=== PATIENT | male | born 1940 | race Caucasian/White ===

== ENCOUNTER 2019-08-03 09:03 | Observation (INO) | payer MEDICARE, OTHER, SELFPAY ==
[2019-08-03 09:27] LABS: #Basophils 0.1 thou/uL (0.0-0.2); #Eosinphils 0.1 thou/uL (0.0-0.7); #Lymphocytes 1.4 thou/uL (1.20-3.40); #Monocytes 0.4 thou/uL (0.11-0.59); #Neutrophils 4.2 thou/uL (1.40-6.50); %Basophils 1.1 % (0.0-1.0); %Lymphocytes 22.2 % (21.0-51.0); %Monocytes 6.3 % (0.0-10.0); %Neutrophils 68.5 % (42.0-75.0); Hemoglobin 14.6 g/dL (14.0-18.0); Mean Corpuscular HGB CONC 32.2 g/dL (32.0-36.0); Mean Corpuscular Hemoglobin 30.2 pg (27.0-31.0); Mean Corpuscular Volume 93.9 fL (78.0-98.0); Mean Platelet Volume 8.2 fL (7.4-10.4); Platelet Count 191 thou/uL (130-400); Red Blood Cell (RBC) Count 4.84 mill/uL (4.70-6.10); White Blood Cell (WBC) Count 6.2 thou/uL (4.8-10.8)
[2019-08-03] MEDS ORDERED: Nitroglycerin 2% Ointment 1 INCH/1 GM Packet ONE (09:32)
[2019-08-03] MEDS ORDERED: Aspirin Chewable 81 MG TAB ONE (09:32)
[2019-08-03 09:51] LABS: ALT (SGPT) 13 U/L (8-55); AST (SGOT) 16 U/L (5-34); Albumin 4.2 g/dL (3.4-4.8); Alkaline Phosphatase 96 U/L (40-110); Anion Gap 11 mmol/L (10-20); BUN (Urea Nitrogen) 20 mg/dL (8.4-25.7); Bilirubin, Total 0.6 mg/dL (0.2-1.2); Calc. Creatinine Clearance 0 mL/min (70-130); Calcium 9.3 mg/dL (7.8-10.44); Carbon Dioxide 25 mmol/L (23-31); Chloride 109 mmol/L (98-107); Estimated GFR-MDRD 40; Globulin 3.6 g/dL (2.4-3.5); Glucose 94 mg/dL (83-110); Lipase 16 U/L (8-78); Potassium 4.1 mmol/L (3.5-5.1); Protein, Total 7.8 g/dL (5.8-8.1); Sodium 141 mmol/L (136-145)
--- NOTE | 2019-08-03 09:58 | RAD ---
EXAM: Portable chest PROVIDED CLINICAL HISTORY: Chest pain COMPARISON: None FINDINGS: Cardiac and mediastinal silhouette is within normal limits. No focal consolidation, pleural fluid or pneumothorax evident. Left subclavian cardiac pacing device is noted with lead tips overlying expected locations of RA and RV. IMPRESSION: No evidence for an acute cardiopulmonary process.
[2019-08-03] MEDS ORDERED: Ondansetron PF 4 MG/2 ML Vial IVP PRN ×2 (12:01→15:03)
[2019-08-03] MEDS ORDERED: Ondansetron ODT 4 MG TAB SL PRN (12:01)
[2019-08-03 12:11] VITALS: BMI 26.6
[2019-08-03 12:41] LABS: Troponin I 0.023 ng/mL (< 0.028)
[2019-08-03] MEDS ORDERED: Ondansetron ODT 4 MG TAB PO PRN (15:03)
[2019-08-03] MEDS ORDERED: hydrALAZINE 20 MG/ML VIAL SLOW IVP PRN (15:03)
[2019-08-03] MEDS ORDERED: Labetalol HCl 100 MG/20 ML VIAL SLOW IVP PRN (15:03)
[2019-08-03] MEDS ORDERED: Nitroglycerin 0.4 MG TAB (25 Tab Bottle) PO PRN (15:03)
[2019-08-03] MEDS ORDERED: Benzonatate 100 MG CAP PO PRN (15:03)
[2019-08-03 15:59] LABS: Troponin I 0.012 ng/mL (< 0.028)
[2019-08-03] MEDS: Acetaminophen 500 MG TAB PO PRN (17:54)
[2019-08-03] MEDS: Famotidine 20 MG TAB PO SCH (20:13)
[2019-08-03] MEDS: Carvedilol 6.25 MG TAB PO SCH (20:13)
[2019-08-03] MEDS: Gabapentin 300 MG CAP PO SCH (20:13)
[2019-08-03] MEDS ORDERED: Rivaroxaban 10 MG TAB PO SCH (21:00)
--- NOTE | 2019-08-03 21:04 | HP ---
PRIMARY CARE PROVIDER: Formerly, Dr. Harish Snider. CHIEF COMPLAINT: Chest pain. HISTORY OF PRESENT ILLNESS: This is a 78-year-old male, who presents to [facility] Emergency Department complaining of central dull substernal chest pressure, which began approximately 3:00 a.m. on the day of evaluation in the emergency room. The patient had noticed substernal discomfort in the last 24 to 48 hours, rest causing some relief of his symptoms. The patient denied any left shoulder radiation or jaw discomfort and denied any change to his chronic medication regimen. The patient states he has been compliant with all of his medications, but has noticed his blood pressure trending upward without specific cause. The patient denied any increased stress activity level, recent illness, or fever. The patient denied any trauma injury, unilateral weakness, or difficulty with speech. The patient does admit to a long-standing history of coronary artery disease, status post cardiac stent placement x5, on chronic aspirin and Xarelto. In the emergency room, the patient underwent general evaluation with troponin I negative x2. EKG showed nonspecific changes with T-wave flattening, but no acute ST-T wave changes concerning for acute UT. The patient received aspirin 324 mg in addition to transdermal nitroglycerin. The patient was referred to the Hospitalist Service for further evaluation. PAST MEDICAL HISTORY: 1. Coronary artery disease, status post cardiac stent placement x5. 2. Hypertension. 3. Hypothyroidism. 4. Hyperlipidemia. PAST SURGICAL HISTORY: 1. Status post tonsillectomy. 2. Status post cardiac catheterization with cardiac stent placement. 3. Status post shoulder and elbow repair. 4. Status post pacemaker placement. CURRENT MEDICATIONS: 1. Xarelto 20 mg p.o. daily. 2. Synthroid 137 mcg p.o. daily. 3. Aspirin 81 mg p.o. daily. 4. Losartan 50 mg p.o. daily. 5. Carvedilol 6.25 mg p.o. b.i.d. 6. Finasteride 5 mg p.o. daily. 7. Gabapentin 300 mg p.o. b.i.d. ALLERGIES: CODEINE SULFATE AND STATINS. FAMILY HISTORY: Positive for hypertension and coronary artery disease. SOCIAL HISTORY: The patient is , residing in [place], [place]. 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 No current alcohol, tobacco, or illicit drug use. Ambulatory without assistance or difficulty. REVIEW OF SYSTEMS: CONSTITUTIONAL: Negative for weight loss or gain, ability to conduct usual activities. SKIN: Negative for rash, itching. EYES: Negative for double vision, pain. ENT/MOUTH: Negative for nose bleeding, neck stiffness, pain, tenderness. CARDIOVASCULAR: Negative for palpitations, dyspnea on exertion, orthopnea. RESPIRATORY: Negative for shortness of breath, wheezing, cough, hemoptysis, fever or night sweats. GASTROINTESTINAL: Negative for poor appetite, abdominal pain, heartburn, nausea , vomiting, constipation, or diarrhea. GENITOURINARY: Negative for urgency, frequency, dysuria, nocturia. MUSCULOSKELETAL: Negative for pain, swelling. NEUROLOGIC/PSYCHIATRIC: Negative for anxiety, depression. ALLERGY/IMMUNOLOGIC: Negative for skin rash, bleeding tendency. Otherwise negative except as stated per HPI. PHYSICAL EXAMINATION: VITAL SIGNS: On admission, blood pressure 173/79, pulse 66, respiratory rate 18 , temperature 97.8 degrees Fahrenheit, O2 saturation 100% on room air. GENERAL APPEARANCE: This is a 78-year-old male, alert and oriented x3 , pleasant, smiling, in no acute distress. HEENT: Pupils are equal, round, reactive to light and accommodation. Extraocular muscles are intact. No scleral icterus. No conjunctival injection. Nares are patent. OP is clear. Teeth in good repair. NECK: Supple. No cervical adenopathy. No thyromegaly. No carotid bruits. No JVD appreciated. Cervical spine with full active and passive range of motion. No meningeal signs noted. CHEST: Lungs are clear to auscultation bilaterally. CARDIOVASCULAR: S1, S2 without noted murmur, rub, or gallop. ABDOMEN: Rounded, soft, nontender, and nondistended. Bowel sounds are positive in all 4 quadrants. There is no hepatosplenomegaly. No abdominal bruits. No rebound or guarding appreciated. EXTREMITIES: Warm and dry with good turgor. No clubbing, cyanosis, or asymmetric edema appreciated. Pulses palpable distally at the dorsalis pedis, posterior tibial, and popliteal arteries bilaterally. Capillary refill less than 2 seconds. NEUROLOGIC: Cranial nerves 2 through 12 are grossly intact. No focal or lateralizing signs appreciated. PERTINENT LABORATORY AND X-RAY FINDINGS: Sodium 141, potassium 4.1, chloride 109, CO2 of 25, BUN 20, creatinine 1.68, estimated GFR 40, glucose 94, calcium 9.3. LFTs within normal limits. Troponin I negative x2. Lipase 16. CBC within normal limits. Portable chest x-ray dated 08/03/2019 showed no acute cardiopulmonary process. Left subclavian cardiac pacemaking device in place. EKG dated 2019 by my interpretation shows a paced rhythm with heart rates in the 60s. Normal R-wave progression noted in the precordial leads. Normal axis. Inferior T-wave flattening. No acute ST-T wave changes noted. ASSESSMENT AND PLAN: 1. Chest pain. The patient will be observed on the telemetry unit. We will continue serial cardiac biomarker trending. Initially negative x2. Continue telemetry monitoring. Resume aspirin 81 mg daily. Check 2D transthoracic echocardiogram for ejection fraction and valvular function. Check fasting lipid profile in the a.m. 2. Coronary artery disease, chronic and stable. No current evidence to suggest acute decompensation. See #1 above. 3. Chronic kidney disease, stage 3. Avoid nephrotoxic agents. Limit contrast exposure. Repeat creatinine in the a.m. 4. Hypertension. Labile. Resume home blood pressure regimen to include losartan 50 mg daily in addition to Coreg 6.25 mg b.i.d. We will continue to monitor blood pressure trend and titrate blood pressure regimen to optimal response. 5. Hypothyroidism. Continue levothyroxine 137 mcg daily. Check TSH and free T4 level in the a.m. 6. Chronic anticoagulation. Resume Xarelto 20 mg p.o. at bedtime. 7. Prophylaxis. SCDs while in bed. Pepcid 20 mg p.o. b.i.d.. CODE STATUS: Full. Surrogate medical decision maker is the patient's spouse. Job ID: [id number] [facility]
[2019-08-04 05:28] LABS: Anion Gap 13 mmol/L (10-20); BUN (Urea Nitrogen) 19 mg/dL (8.4-25.7); Calc. Creatinine Clearance 48 mL/min (70-130); Carbon Dioxide 21 mmol/L (23-31); Cardiac Risk 7.1 (Less than 4.5); Chloride 108 mmol/L (98-107); Cholesterol 200 mg/dl (< 200 Desired); Estimated GFR-MDRD 41; Glucose 96 mg/dL (83-110); HDL Cholesterol 28 mg/dL (>60 Neg Risk); LDL Cholesterol, Calculated 143 mg/dL; Potassium 4.3 mmol/L (3.5-5.1); Sodium 138 mmol/L (136-145); Triglycerides 147 mg/dL (Less than 150)
[2019-08-04 05:32] LABS: Band 2 % (5-11); Eosinophils 3 % (0-10); Hemoglobin 14.2 g/dL (14.0-18.0); Lymphocytes 30 % (21-51); MDiff Complete? YES; Mean Corpuscular HGB CONC 33.9 g/dL (32.0-36.0); Mean Corpuscular Hemoglobin 31.8 pg (27.0-31.0); Mean Corpuscular Volume 93.9 fL (78.0-98.0); Mean Platelet Volume 8.7 fL (7.4-10.4); Monocytes 10 % (0-10); Neutrophil 54 % (42-75); Platelet Count 181 thou/uL (130-400); RBC Distribution Width 11.9 % (11.5-14.5); Reactive Lymphocytes 1 % (0-10); Red Blood Cell (RBC) Count 4.45 mill/uL (4.70-6.10); White Blood Cell (WBC) Count 7.9 thou/uL (4.8-10.8)
[2019-08-04 05:45] LABS: Free T4 (Free Thyroxine) 1.04 ng/dL (0.70-1.48); Thyroid Stimulating Hormone 0.6548 uIU/mL (0.35-4.94)
[2019-08-04] MEDS ORDERED: Levothyroxine Sodium 112 MCG TAB PO SCH (06:00)
[2019-08-04] MEDS ORDERED: Levothyroxine Sodium 25 MCG TAB PO SCH (06:00)
[2019-08-04 08:05] VITALS: BP 130/81; TEMP 98
[2019-08-04] MEDS: Carvedilol 6.25 MG TAB PO SCH (08:31)
[2019-08-04] MEDS: Famotidine 20 MG TAB PO SCH (08:31)
[2019-08-04] MEDS: Gabapentin 300 MG CAP PO SCH (08:32)
[2019-08-04] MEDS: Acetaminophen 500 MG TAB PO PRN (08:32)
[2019-08-04] MEDS ORDERED: Finasteride 5 MG TAB PO SCH (09:00)
[2019-08-04] MEDS ORDERED: Non-Formulary Item 1 EACH (Levothyroxine Sodium [Synthroid] 137 MCG) PO SCH (09:00)
[2019-08-04] MEDS ORDERED: Aspirin Chewable 81 MG TAB PO SCH (09:00)
[2019-08-04] MEDS ORDERED: Losartan 25 MG TAB PO SCH (09:00)
--- NOTE | 2019-08-04 17:12 | DIS ---
DATE OF ADMISSION: 08/03/2019 DATE OF DISCHARGE: 08/04/2019 DISCHARGE DIAGNOSES: 1. Chest pain, noncardiac. 2. Coronary artery disease, chronic and stable. 3. Chronic kidney disease stage 3, stable. 4. Hypertension, stable. 5. Hypothyroidism, stable. CONSULTATIONS: None. PERTINENT LABORATORY AND X-RAY FINDINGS: Creatinine ranged between 1.65 to 1.68. Estimated GFR ranged between 40 to 41. Troponin I negative x3. Total cholesterol 200, triglycerides 147, HDL 28, and LDL 143. TSH 0.65, free T4 of 1.04. Lipase 16. CBC within normal limits. Portable chest x-ray dated 08/03/2019 showed no acute cardiopulmonary process. 2D transthoracic echocardiogram dated 08/03/2019 showed ejection fraction of 60% to 65%. Diastolic dysfunction noted. HOSPITAL COURSE: The patient was observed after initially presenting with chest pain in the context of known coronary artery disease. Serial cardiac biomarkers were negative x3. An EKG showed a paced rhythm with heart rates in the 60s. The patient underwent 2D transthoracic echocardiogram evaluation showing overall preserved ejection fraction of 60% to 65% with diastolic dysfunction noted. Serial blood pressure monitoring showed overall stable trend and the patient continue his regular outpatient blood pressure regimen to include losartan and carvedilol. No specific evidence of acute coronary syndrome with recommendations to continue general medical management. I have examined the patient at the time of discharge and discussed followup instructions. The patient verbalized understanding and in agreement, ready for discharge on 08/04/2019. DISCHARGE MEDICATIONS: 1. Aspirin 81 mg p.o. daily. 2. Coreg 6.25 mg p.o. b.i.d. 3. Proscar 5 mg p.o. daily. 4. Neurontin 300 mg p.o. b.i.d. 5. Levothyroxine 137 mcg p.o. daily. 6. Cozaar 50 mg p.o. daily. 7. Xarelto 20 mg p.o. nightly. FOLLOWUP: The patient may follow up with his primary care provider, Dr. Harish Randle. CONDITION ON DISCHARGE: Stable. ACTIVITY: Ad-velia. DIET: Heart healthy. CODE STATUS: Full. DISPOSITION: To home, 08/04/2019. Job ID: [id number]
== END 2019-08-04 11:25 | disposition home or self-care (01) ==
LOC: ERS 09:03 → 2SW 12:02
PROVIDERS: ADMIT Family Medicine; ATTEND Family Medicine
DX: R07.89 Other chest pain (principal); I25.10 Atherosclerotic heart disease of native coronary artery without angina pectoris; I12.9 Hypertensive chronic kidney disease with stage 1 through stage 4 chronic kidney disease, or unspecified chronic kidney disease; N18.3 Chronic kidney disease, stage 3 (moderate); E03.9 Hypothyroidism, unspecified; E78.5 Hyperlipidemia, unspecified; N40.0 Benign prostatic hyperplasia without lower urinary tract symptoms; Z79.01 Long term (current) use of anticoagulants; Z79.82 Long term (current) use of aspirin; Z79.899 Other long term (current) drug therapy; Z88.5 Allergy status to narcotic agent; Z88.8 Allergy status to other drugs, medicaments and biological substances; Z95.0 Presence of cardiac pacemaker; Z95.5 Presence of coronary angioplasty implant and graft
CPT/HCPCS: 36415; 71045; 80048; 80053; 80061; 83690; 84439; 84443; 84484; 85007; 85025; 85027; 93005; 93306; 94760; G0378